=== PATIENT | male | born 1960 | race Hispanic/Latino ===

== ENCOUNTER 2017-06-01 17:03 | Emergency (ER) | payer SELFPAY ==
[2017-06-01 17:06] VITALS: BP 104/73; PULSE 91; RESP 16; TEMP 98.4; O2SAT 100
--- NOTE | 2017-06-01 17:25 | ED PDOC ---
HPI: Psych/Substance Abuse Time Seen by Provider: 06/01/17 17:08 Chief Complaint (Nursing): Alcohol Ingestion Chief Complaint (Provider): ETOH History Per: Patient Additional Complaint(s): Patient brought to ED for alcohol intoxication. Offers no complaints, asking to nap and eat. Past Medical History Reviewed: Nursing Documentation, Vital Signs Vital Signs: Last Vital Signs Temp 98.4 F 06/01/17 17:04 Pulse 91 H 06/01/17 17:04 Resp 16 06/01/17 17:04 BP 104/73 06/01/17 17:04 Pulse Ox 100 06/01/17 17:04 - Medical History PMH: No Chronic Diseases - Family History Family History: States: Unknown Family Hx - Living Arrangements Living Arrangements: Other - Social History Alcohol: > 2 Drinks/Day - Home Medications Home Medications: Ambulatory Orders Medication Instructions Recorded Unobtainable 06/01/17 - Allergies Allergies/Adverse Reactions: Allergies Allergy/AdvReac Type Severity Reaction Status Date / Time No Known Allergies Allergy Verified 06/01/17 17:04 Review of Systems ROS Statement: Except As Marked, All Systems Reviewed And Found Negative Physical Exam - Reviewed Nursing Documentation Reviewed: Yes Vital Signs Reviewed: Yes - Physical Exam Appears: Positive for: Well, Non-toxic, No Acute Distress Head Exam: Positive for: ATRAUMATIC, NORMAL INSPECTION, NORMOCEPHALIC Skin: Positive for: Normal Color, Warm, DRY Eye Exam: Positive for: EOMI, Normal appearance, PERRL ENT: Positive for: Normal ENT Inspection Neck: Positive for: Normal, Painless ROM Cardiovascular/Chest: Positive for: Regular Rate, Rhythm Respiratory: Positive for: CNT, Normal Breath Sounds Gastrointestinal/Abdominal: Positive for: Normal Exam, Bowel Sounds, Soft Back: Positive for: Normal Inspection Extremity: Positive for: Normal ROM Neurologic/Psych: Positive for: Alert, Oriented - ECG O2 Sat by Pulse Oximetry: 100 Medical Decision Making Medical Decision Making: given food tray which he tolerated slept in ED on re-eval, Pt awake and alert. ambulating to restroom. stable for discharge Disposition - Clinical Impression Clinical Impression: Alcohol abuse - Patient ED Disposition Is Patient to be Admitted: No - Disposition Disposition: Routine/Home Disposition Time: 19:41 Condition: STABLE Instructions: Alcohol Intoxication (ED) Forms: [employer] (Latvian)
== END 2017-06-01 21:08 | disposition home or self-care (01) ==
LOC: H.ER 17:03
DX: F10.129 Alcohol abuse with intoxication, unspecified (principal)

== ENCOUNTER 2017-07-04 17:55 | Emergency (ER) | payer SELFPAY ==
[2017-07-04 18:05] VITALS: O2SAT 100
--- NOTE | 2017-07-04 19:11 | ED PDOC ---
HPI: Psych/Substance Abuse Time Seen by Provider: 07/04/17 18:50 Chief Complaint (Nursing): Alcohol Ingestion Chief Complaint (Provider): Alcohol Ingestion History Per: Patient History/Exam Limitations: intoxication Onset/Duration Of Symptoms: Days (x1) Current Symptoms Are (Timing): Still Present Modifying Factor(s): Alcohol Additional Complaint(s): Patient is a 56 year old male brought to the ED by EMS for alcohol intoxication. Admits to drinking today. When asked if he has any pain, states you. No other complaints offered. Requests food and drink. PMD: Non-[facility] Provider Past Medical History Reviewed: Historical Data, Nursing Documentation, Vital Signs Vital Signs: Last Vital Signs Temp 98.1 F 07/04/17 18:03 Pulse 88 07/04/17 18:03 Resp 20 07/04/17 18:03 BP 110/70 07/04/17 18:03 Pulse Ox 100 07/04/17 18:03 - Family History Family History: States: Unknown Family Hx - Social History Alcohol: < 2 Drinks/Day - Home Medications Home Medications: Ambulatory Orders Medication Instructions Recorded Unobtainable 06/01/17 - Allergies Allergies/Adverse Reactions: Allergies Allergy/AdvReac Type Severity Reaction Status Date / Time No Known Allergies Allergy Verified 06/01/17 17:04 Review of Systems ROS Statement: Except As Marked, All Systems Reviewed And Found Negative Constitutional: Negative for: Fever Cardiovascular: Negative for: Chest Pain Respiratory: Negative for: Shortness of Breath Physical Exam - Reviewed Nursing Documentation Reviewed: Yes Vital Signs Reviewed: Yes - Physical Exam Appears: Positive for: Non-toxic, No Acute Distress Head Exam: Positive for: ATRAUMATIC, NORMAL INSPECTION, NORMOCEPHALIC Skin: Positive for: Normal Color, Warm, Dry Eye Exam: Positive for: EOMI, Normal appearance, PERRL Neck: Positive for: Normal, Painless ROM, Supple Cardiovascular/Chest: Positive for: Regular Rate, Rhythm. Negative for: Murmur Respiratory: Positive for: Normal Breath Sounds. Negative for: Accessory Muscle Use, Respiratory Distress Gastrointestinal/Abdominal: Positive for: Normal Exam, Soft. Negative for: Tenderness Extremity: Positive for: Normal ROM. Negative for: Pedal Edema, Deformity Neurologic/Psych: Positive for: Alert (and awake, responding to verbal stimuli) , Other (Slurred speech, ETOH on breath) - ECG O2 Sat by Pulse Oximetry: 100 (RA) Pulse Ox Interpretation: Normal Medical Decision Making Medical Decision Making: Initial Impression: ETOH Intoxication Time: 18:58 Initial Plan: --Accucheck --Pending clinical sobriety Scribe Attestation: Documented by Aliza Gutierrez, acting as a scribe for Miladis Blancas PA-C Provider Scribe Attestation: All medical record entries made by the Scribe were at my direction and personally dictated by me. I have reviewed the chart and agree that the record accurately reflects my personal performance of the history, physical exam, medical decision making, and the department course for this patient. I have also personally directed, reviewed, and agree with the discharge instructions and disposition. Disposition - Clinical Impression Clinical Impression: Alcohol ingestion - Patient ED Disposition Is Patient to be Admitted: Transfer of Care - Disposition Disposition: Transfer of Care Disposition Time: 23:52 Condition: STABLE Forms: [employer] (Tajik) Patient Signed Over To: Louise Mccoy Handoff Comments: PENDING CLINICAL SOBRIETY
[2017-07-04 21:16] VITALS: BP 112/68; PULSE 82; RESP 16; TEMP 98.4
--- NOTE | 2017-07-05 00:09 | ED PDOC ---
- ECG O2 Sat by Pulse Oximetry: 100 (RA) Medical Decision Making Medical Decision Making: Case endorsed to financial writer from ASHLI Blancas at 000 pending clinical sobriety Glucose 107 Pt up and ambulating to restroom [id number] Stable for discharge Disposition - Clinical Impression Clinical Impression: Alcohol ingestion - POA Present On Arrival: None - Disposition Disposition: Routine/Home Disposition Time: 00:41 Condition: STABLE Forms: [employer] ([place])
== END 2017-07-05 00:44 | disposition home or self-care (01) ==
LOC: H.ER 17:55
DX: F10.129 Alcohol abuse with intoxication, unspecified (principal)